=== PATIENT | female | born 1970 | race Hispanic/Latino ===

== ENCOUNTER 2018-06-27 23:14 | Emergency (ER) | payer OTHER ==
[2018-06-27 23:48] LABS: APPEARANCE,URINE Turbid (CLEAR); BILIRUBIN,URINE Small (NEGATIVE); COLOR,URINE Dark Yellow (YELLOW); GLUCOSE, URINE (UA) Negative (NEGATIVE); KETONES,URINE Negative (NEGATIVE); LEUKOCYTE ESTERASE ,URINE Large (NEGATIVE); NITRATE,URINE Positive (NEGATIVE); OCCULT BLOOD,URINE Large (NEGATIVE); PROTEIN,URINE POS 2+ (NEGATIVE)
[2018-06-27] MEDS ORDERED: ONDANSETRON HCL 4 MG/2 ML VIAL ONE (23:50)
[2018-06-27] MEDS ORDERED: SODIUM CHLORIDE 0.9% 1000ML 1,000 ML IV ONE (23:51)
[2018-06-27] MEDS ORDERED: FAMOTIDINE/PF 20 MG/2 ML VIAL IV ONE (23:51)
[2018-06-27 23:54] LABS: EOSINOPHILS % (AUTO) 0.6 % (0.0-8.0); HEMATOCRIT 39.4 % (36-48); LYMPHOCYTES % (AUTO) 32.5 % (21.0-51.0); MEAN CORPUSCULAR HGB CONC 34.5 g/dL (32.0-36.0); MEAN CORPUSCULAR VOLUME 90.1 fL (79-99); MONOCYTES % (AUTO) 7.5 % (3.0-13.0); NEUTROPHILS % (AUTO) 58.4 % (40.0-77.0); PLATELET COUNT (AUTO) 242 K/uL (130-400); RED BLOOD CELL COUNT(AUTO) 4.37 MIL/uL (4.00-5.50); RED CELL DISTRIBUTION WIDTH 12.8 % (11.0-15.5); WHITE BLOOD COUNT (AUTO) 8.9 K/uL (4.8-10.8)
[2018-06-28 00:06] LABS: ALBUMIN 3.3 g/dL (3.5-5.0); BILIRUBIN,TOTAL 0.6 mg/dL (0.2-1.0); CREATININE 0.8 mg/dL (0.5-1.5); TOTAL PROTEIN, SERUM 8.1 g/dL (6.0-8.3)
[2018-06-28 00:15] LABS: POTASSIUM 3.4 mmol/L (3.5-5.1)
[2018-06-28 00:19] LABS: BACTERIA,URINE Many /HPF (None Seen); MUCUS,URINE Few LPF (None Seen); WBC,URINE TNTC /HPF (0-1)
[2018-06-28] MEDS ORDERED: MAG HYDROX/AL HYDROX/SIMETH ES 30 ML SUSP UDCUP ONE (00:47)
[2018-06-28] MEDS ORDERED: LIDOCAINE HCL 2% VISCOUS 15 ML UDCUP ONE (00:47)
[2018-06-28] MEDS ORDERED: CEFTRIAXONE SODIUM 1 GM ONE (01:01)
[2018-06-28] MEDS ORDERED: SODIUM CHLORIDE 0.9% 50 ML IV ONE (01:01)
== END 2018-06-28 02:23 | disposition home or self-care (01) ==
LOC: EDH 23:14
DX: N39.0 Urinary tract infection, site not specified (principal); K80.70 Calculus of gallbladder and bile duct without cholecystitis without obstruction; E11.9 Type 2 diabetes mellitus without complications; Z98.890 Other specified postprocedural states
CPT/HCPCS: 36415; 76705; 80053; 81001; 82150; 83690; 85025; 93005; 96374; 96375; 99285; J0696; J2405; J3490; J7030

== ENCOUNTER 2018-06-29 15:59 | Emergency (ER) | payer OTHER ==
[2018-06-29] MEDS ORDERED: DICYCLOMINE HCL 10 MG/ML 2ML AMP IM ONE (16:50)
[2018-06-29] MEDS ORDERED: ONDANSETRON HCL 4 MG/2 ML VIAL ONE (16:50)
[2018-06-29 16:56] LABS: BASOPHILS % (AUTO) 0.9 % (0.0-5.0); EOSINOPHILS % (AUTO) 0.7 % (0.0-8.0); HEMATOCRIT 38.8 % (36-48); LYMPHOCYTES % (AUTO) 29.4 % (21.0-51.0); MEAN CORPUSCULAR HGB CONC 34.5 g/dL (32.0-36.0); MEAN CORPUSCULAR VOLUME 89.9 fL (79-99); MONOCYTES % (AUTO) 7.2 % (3.0-13.0); NEUTROPHILS % (AUTO) 61.8 % (40.0-77.0); PLATELET COUNT (AUTO) 247 K/uL (130-400); RED BLOOD CELL COUNT(AUTO) 4.31 MIL/uL (4.00-5.50); RED CELL DISTRIBUTION WIDTH 12.7 % (11.0-15.5); WHITE BLOOD COUNT (AUTO) 7.5 K/uL (4.8-10.8)
[2018-06-29 17:05] LABS: CREATININE 0.7 mg/dL (0.5-1.5); POTASSIUM 3.6 mmol/L (3.5-5.1)
[2018-06-29 17:10] LABS: ALBUMIN 3.2 g/dL (3.5-5.0); BILIRUBIN,DIRECT 0.2 mg/dL (0.0-0.3); BILIRUBIN,TOTAL 0.4 mg/dL (0.2-1.0); TOTAL PROTEIN, SERUM 8.3 g/dL (6.0-8.3)
[2018-06-29 17:23] LABS: APPEARANCE,URINE Clear (CLEAR); BILIRUBIN,URINE Negative (NEGATIVE); COLOR,URINE Yellow (YELLOW); GLUCOSE, URINE (UA) Negative (NEGATIVE); KETONES,URINE Trace mg/dL (NEGATIVE); LEUKOCYTE ESTERASE ,URINE Small (NEGATIVE); NITRATE,URINE Negative (NEGATIVE); OCCULT BLOOD,URINE Negative (NEGATIVE); PH,URINE 6.5 (5.0-8.0); PROTEIN,URINE Negative (NEGATIVE)
[2018-06-29 17:33] LABS: RBC,URINE 0-1 /HPF (0-1)
[2018-06-29 17:34] LABS: BACTERIA,URINE Rare /HPF (None Seen); SQUAMOUS EPITHELIAL CELL,UR Few /HPF (0-2); YEAST,URINE BUDDING Few /HPF (None Seen)
== END 2018-06-29 18:14 | disposition home or self-care (01) ==
LOC: EDH 15:59
DX: N39.0 Urinary tract infection, site not specified (principal); K80.70 Calculus of gallbladder and bile duct without cholecystitis without obstruction; E11.9 Type 2 diabetes mellitus without complications; Z87.891 Personal history of nicotine dependence
CPT/HCPCS: 36415; 80048; 80076; 81001; 85025; 96372; 96374; 99284; J0500; J2405

== ENCOUNTER 2018-07-18 08:18 | Emergency (ER) | payer OTHER ==
[2018-07-18] MEDS ORDERED: ONDANSETRON HCL 4 MG/2 ML VIAL ONE (08:53)
[2018-07-18] MEDS ORDERED: HYDROCODONE/ACETAMINOPHEN 10/325 MG TAB ONE (08:54)
[2018-07-18 08:58] LABS: BASOPHILS % (AUTO) 0.3 % (0.0-5.0); HEMATOCRIT 39.7 % (36-48); LYMPHOCYTES % (AUTO) 11.5 % (21.0-51.0); MEAN CORPUSCULAR HEMOGLOBIN 29.8 pg (27.0-33.0); MEAN CORPUSCULAR HGB CONC 33.8 g/dL (32.0-36.0); MEAN CORPUSCULAR VOLUME 88.1 fL (79-99); MONOCYTES % (AUTO) 7.6 % (3.0-13.0); NEUTROPHILS % (AUTO) 80.6 % (40.0-77.0); PLATELET COUNT (AUTO) 204 K/uL (130-400); RED BLOOD CELL COUNT(AUTO) 4.51 MIL/uL (4.00-5.50); RED CELL DISTRIBUTION WIDTH 12.7 % (11.0-15.5); WHITE BLOOD COUNT (AUTO) 13.8 K/uL (4.8-10.8)
[2018-07-18 09:01] LABS: APPEARANCE,URINE Cloudy (CLEAR); BILIRUBIN,URINE Negative (NEGATIVE); COLOR,URINE Yellow (YELLOW); GLUCOSE, URINE (UA) >=1000 mg/dL (NEGATIVE); KETONES,URINE 15 mg/dL (NEGATIVE); LEUKOCYTE ESTERASE ,URINE Moderate (NEGATIVE); NITRATE,URINE Positive (NEGATIVE); OCCULT BLOOD,URINE Small (NEGATIVE); PH,URINE 6.5 (5.0-8.0); PROTEIN,URINE Trace (NEGATIVE)
[2018-07-18 09:04] LABS: CREATININE 0.9 mg/dL (0.5-1.5); POTASSIUM 3.5 mmol/L (3.5-5.1)
[2018-07-18 09:08] LABS: ALBUMIN 2.9 g/dL (3.5-5.0); BILIRUBIN,TOTAL 0.9 mg/dL (0.2-1.0); TOTAL PROTEIN, SERUM 8.7 g/dL (6.0-8.3)
[2018-07-18 09:11] LABS: BACTERIA,URINE Many /HPF (None Seen); WBC,URINE >100 /HPF (0-1)
[2018-07-18] MEDS ORDERED: LEVOFLOXACIN 500 MG/D5W 100 ML 100 ML ONE (09:12)
[2018-07-18] MEDS ORDERED: SODIUM CHLORIDE 0.9% 1000ML 1,000 ML IV ONE (10:15)
[2018-07-18] MEDS ORDERED: CEFTRIAXONE SODIUM 1 GM ONE (10:16)
== END 2018-07-18 11:10 | disposition home or self-care (01) ==
LOC: EDH 08:18
DX: N12 Tubulo-interstitial nephritis, not specified as acute or chronic (principal); K80.50 Calculus of bile duct without cholangitis or cholecystitis without obstruction; E11.9 Type 2 diabetes mellitus without complications
CPT/HCPCS: 36415; 76705; 80053; 81001; 83605; 83690; 85025; 87040 ×2; 87077 ×2; 87088; 87186 ×2; 87804 ×2; 96365; 96375; 99285; J0696; J1956; J2405; J7030

== ENCOUNTER 2020-03-28 20:42 | Emergency (ER) | payer OTHER ==
[2020-03-28 21:34] LABS: BASOPHILS % (AUTO) 0.4 % (0.0-5.0); EOSINOPHILS % (AUTO) 0.6 % (0.0-8.0); HEMATOCRIT 43.2 % (36-48); LYMPHOCYTES % (AUTO) 34.5 % (21.0-51.0); MEAN CORPUSCULAR HEMOGLOBIN 29.8 pg (27.0-33.0); MEAN CORPUSCULAR HGB CONC 33.8 g/dL (32.0-36.0); MEAN CORPUSCULAR VOLUME 88.2 fL (79-99); MONOCYTES % (AUTO) 8.9 % (3.0-13.0); NEUTROPHILS % (AUTO) 55.2 % (40.0-77.0); PLATELET COUNT (AUTO) 180 K/uL (130-400); WHITE BLOOD COUNT (AUTO) 5.3 K/uL (4.8-10.8)
[2020-03-28 21:37] LABS: APPEARANCE,URINE Clear (CLEAR); BILIRUBIN,URINE Negative (NEGATIVE); COLOR,URINE Yellow (YELLOW); GLUCOSE, URINE (UA) >=1000 mg/dL (NEGATIVE); KETONES,URINE Negative (NEGATIVE); LEUKOCYTE ESTERASE ,URINE Negative (NEGATIVE); NITRATE,URINE Negative (NEGATIVE); OCCULT BLOOD,URINE Negative (NEGATIVE); PROTEIN,URINE Negative (NEGATIVE)
[2020-03-28 21:46] LABS: RBC,URINE 0-1 /HPF (0-1); WBC,URINE 0-1 /HPF (0-1)
[2020-03-28 21:47] LABS: BACTERIA,URINE Rare /HPF (None Seen); POTASSIUM 4.7 mmol/L (3.5-5.1); SQUAMOUS EPITHELIAL CELL,UR Rare /HPF (0-2)
[2020-03-28] MEDS ORDERED: IBUPROFEN 400 MG TABLET ONE (21:47)
[2020-03-28] MEDS ORDERED: ONDANSETRON ODT 4 MG TAB ONE (21:47)
[2020-03-28 21:51] LABS: ALBUMIN 3.3 g/dL (3.5-5.0); BILIRUBIN,TOTAL 0.2 mg/dL (0.2-1.0); TOTAL PROTEIN, SERUM 8.5 g/dL (6.0-8.3)
[2020-03-28] MEDS ORDERED: INSULIN HUMULIN R 100 UNIT/ML 3ML ONE (22:30)
[2020-03-28] MEDS ORDERED: MECLIZINE HCL 25 MG TABLET ONE (22:32)
== END 2020-03-28 23:34 | disposition home or self-care (01) ==
LOC: EDH 20:42
DX: J30.9 Allergic rhinitis, unspecified (principal); M54.5 Low back pain; E11.65 Type 2 diabetes mellitus with hyperglycemia; R10.9 Unspecified abdominal pain; R11.0 Nausea
CPT/HCPCS: 36415; 80053; 81001; 82948; 83690; 85025; 87880; 96361; 96374; 99284; J1815

== ENCOUNTER 2022-12-25 11:12 | Emergency (ER) | payer BC, OTHER ==
[~2022-12-25] VITALS: Ht 157.5 cm; Wt 77.1 kg
[~2022-12-25 11:12] MED LIST: ASCO500T19 PO; FERR-72 PO; LEVO750T68 PO
[2022-12-25 11:42] LABS: BASOPHILS % (AUTO) 0.3 % (0.0-5.0); EOSINOPHILS % (AUTO) 0.9 % (0.0-8.0); LYMPHOCYTES % (AUTO) 30.3 % (21.0-51.0); MEAN CORPUSCULAR HEMOGLOBIN 29.9 pg (27.0-33.0); MEAN CORPUSCULAR HGB CONC 34.8 g/dL (32.0-36.0); MEAN CORPUSCULAR VOLUME 85.9 fL (79-99); MONOCYTES % (AUTO) 7.2 % (3.0-13.0); NEUTROPHILS % (AUTO) 60.8 % (40.0-77.0); PLATELET COUNT (AUTO) 177 K/uL (130-400); RED BLOOD CELL COUNT(AUTO) 4.89 MIL/uL (4.00-5.50); RED CELL DISTRIBUTION WIDTH 13.3 % (11.0-15.5); WHITE BLOOD COUNT (AUTO) 7.7 K/uL (4.8-10.8)
[2022-12-25 11:53] LABS: POTASSIUM 4.2 mmol/L (3.5-5.1)
[2022-12-25 11:55] LABS: ALBUMIN 3.4 g/dL (3.5-5.0); TOTAL PROTEIN, SERUM 8.1 g/dL (6.0-8.3)
[2022-12-25 11:56] LABS: APPEARANCE,URINE TURBID (CLEAR); BILIRUBIN,URINE NEGATIVE (NEGATIVE); COLOR,URINE RED (YELLOW); GLUCOSE, URINE (UA) >=1000 mg/dL (NEGATIVE); KETONES,URINE 5 mg/dL (NEGATIVE); LEUKOCYTE ESTERASE ,URINE NEGATIVE Leu/uL (NEGATIVE); NITRATE,URINE NEGATIVE (NEGATIVE); OCCULT BLOOD,URINE LARGE (NEGATIVE); PROTEIN,URINE 100 mg/dL (NEGATIVE); UROBILINOGEN,URINE 0.2 mg/dL (0.2-1.0)
[2022-12-25 12:16] LABS: RBC,URINE TNTC /HPF (0-1); WBC,URINE TNTC /HPF (0-1)
[2022-12-25] MEDS ORDERED: CEFTRIAXONE 1G VIAL IVP ONE (14:00)
[2022-12-25 16:16] VITALS: BP 128/68
[2022-12-25] MEDS ORDERED: CEFU500T67 PO (16:34)
== END 2022-12-25 16:59 | disposition home or self-care (01) ==
LOC: EDH 11:12
DX: N30.91 Cystitis, unspecified with hematuria (principal); E11.9 Type 2 diabetes mellitus without complications; Z79.899 Other long term (current) drug therapy; Z98.890 Other specified postprocedural states
CPT/HCPCS: 99285; 74176; 96374; 76770; 80053; 85025; 87088; 81001; 36415; J0696

== ENCOUNTER 2023-08-20 09:57 | Emergency (ER) | payer BC, OTHER ==
[~2023-08-20] VITALS: Ht 157.5 cm; Wt 77.1 kg
[~2023-08-20 09:57] MED LIST changes: +CEFU500T67 PO
[2023-08-20 10:32] VITALS: BP 134/80; PULSE 81; RESP 17; O2SAT 99
[2023-08-20] MEDS ORDERED: KETOROLAC 60 MG VIAL (30MG/ML) IM ONE (11:30)
[2023-08-20] MEDS ORDERED: CYCLOBENZAPRINE HCL 10 MG TABLET PO ONE (11:30)
[2023-08-20] MEDS ORDERED: IBUP-2077 PO (12:24)
[2023-08-20] MEDS ORDERED: CYCL10TA16 PO (12:24)
== END 2023-08-20 12:35 | disposition home or self-care (01) ==
LOC: EDH 09:57
DX: S80.01XA Contusion of right knee, initial encounter (principal); E11.9 Type 2 diabetes mellitus without complications; Z79.899 Other long term (current) drug therapy; Z98.890 Other specified postprocedural states; Z90.49 Acquired absence of other specified parts of digestive tract; W01.0XXA Fall on same level from slipping, tripping and stumbling without subsequent striking against object, initial encounter; Y93.89 Activity, other specified; Y92.89 Other specified places as the place of occurrence of the external cause; Y99.8 Other external cause status
CPT/HCPCS: 99284; 71045; 73562; 71100; 96372; J1885

== ENCOUNTER 2024-10-10 17:00 | Emergency (ER) | payer OTHER ==
[~2024-10-10] VITALS: Ht 157.5 cm; Wt 63.0 kg
[~2024-10-10 17:00] MED LIST changes: +CYCL10TA16 PO; +IBUP-2077 PO
--- NOTE | 2024-10-10 17:08 | ERN ---
ED Note History of Present Illness Stated Complaint: ABDOMINAL PAIN Chief Complaint: Abdominal Pain Time Seen by MD: 17:02 Dictation: PATIENT IS A 54-YEAR-OLD FEMALE COMING IN TODAY WITH A INTERMITTENT EPIGASTRIC PAIN WITH THE OCCASIONAL NAUSEA VOMITING FOR THREE MONTHS. NO CHEST PAIN NO BACK PAIN NO SOB, NO FEVER NO CHILLS. SHE STATES SHE IS ON OZEMPIC IN HIS ONLY BEEN BACK TO HER DOCTOR THIS MORNING AFTER THREE MONTHS, SHE TOLD HER TO GO TO THE EMERGENCY ROOM. Allergies: Coded Allergies: No Known Drug Allergies (Unverified Allergy, Unknown, 04/13/22) Home Meds Active Scripts Cyclobenzaprine HCl (Flexeril) 10 Mg Tab, 10 MG PO TID for muscle sstiffness, #14 TAB 0 Refills Prov:WILLIAM GALLEGO NP 08/20/23 Ibuprofen (Ibuprofen 800 mg Tab) 800 Mg Tab, 800 MG PO Q8H PRN for fever or pain, #30 TAB 0 Refills Prov:WILLIAM GALLEGO NP 08/20/23 Cefuroxime Axetil (Cefuroxime) 500 Mg Tablet, 500 MG PO BID for 7 Days, #14 TAB Prov:PRICE TORRES MD 12/25/22 Ascorbic Acid/Ascorbate Sodium (Vitamin C 500 mg Tablet Chew) 500 Mg Tab.chew, 500 MG PO DAILY for 30 Days, #30 TAB.CHEW Prov:MELODY YAÑEZ 04/20/22 Ferrous Sulfate (Ferrous Sulfate) 325 Mg Tablet, 325 MG PO DAILY for 30 Days, #30 TAB Prov:MELODY YAÑEZ 04/20/22 Levofloxacin (Levaquin 750Mg Tabs) 750 Mg Tablet, 750 MG PO DAILYBKFST for 14 Days, #14 TAB Prov:MELODY YAÑEZ 04/20/22 Past Medical History Past Medical History: No Pertinent History, Diabetes-Type II Surgical History: Cholecystectomy, Other, Surgical History Other: OVARIAN CYST, KIDNEY STONES. Social History: Negative, Lives with family History: Not Applicable RN Note Reviewed/Agreed w/PFSH: Yes Review of System Dictation CONSTITUTIONAL: NEGATIVE EXCEPT FOR HPI HEAD/FACE: NEGATIVE EXCEPT FOR HPI EENT: NEGATIVE EXCEPT FOR HPI RESPIRATORY: NEGATIVE EXCEPT FOR HPI GASTROINTESTINAL/ABDOMINAL: NEGATIVE EXCEPT FOR HPI EPIGASTRIC PAIN WITH NAUSEA VOMITING X3 MONTHS GENITOURINARY: NEGATIVE EXCEPT FOR HPI MUSCULOSKELETAL: NEGATIVE EXCEPT FOR HPI INTEGUMENTARY: NEGATIVE EXCEPT FOR HPI NEUROLOGICAL/PSYCH: NEGATIVE EXCEPT FOR HPI HEMATOLOGIC/LYMPHATIC: NEGATIVE EXCEPT FOR HPI ALL SYSTEMS NEGATIVE, EXCEPT NOTED ABOVE. 13 POINT REVIEW OF SYSTEMS ASSESSED AND ALL NEGATIVE EXCEPT FOR ABOVE. Initial Vital Sign VS Vital Signs Date Time Temp Pulse Resp B/P (MAP) Pulse Ox O2 Delivery O2 Flow Rate FiO2 10/10/24 17:01 98.6 103 16 134/78 98 Room Air 0 10/10/24 17:50 21 Physical Exam Dictation VITAL SIGNS REVIEWED GENERAL APPEARANCE: ALERT, ORIENTED X 3, MILD ACUTE DISTRESS, WELL DEVELOPED, NOURISHED. HEAD AND FACE: NON-TRAUMATIC. EYES: PERRL, PINK CONJUNCTIVAS, EYELID NO TRAUMA, ANTERIOR CHAMBER WITH ARCUS SENILIS. EARS: PINNAS INTACT AND NO SIGNS OF TRAUMA OR ERYTHEMA EAR CANALS CLEAR AND NO DISCHARGE TM NO ERYTHEMA NOSE: NO DISCHARGE, NO BLEEDING. OROPHARYNX: MOUTH NORMAL, TONGUE PINK, PHARYNX CLEAR,NO ERYTHEMA, TONSILS NO EXUDATES, NO ABSCESSES NOTED, MUCOUS MEMBRANE MOIST NECK: SUPPLE, NON-TENDER, NO THYROMEGALY, NO MASSES, NO JVD, NO BRUITS BREAST:DEFERRED CHEST:NO TENDERNESS, NO CREPITUS, NO PARADOXICAL MOVEMENT, NO RETRACTIONS LUNGS:CLEAR, WELL-VENTILATED, SYMMETRIC, NO RALES, NO WHEEZING, NO RHONCHI, NO STRIDOR, GOOD BREATH SOUNDS BILATERALLY HEART: REGULAR RATE, REGULAR RHYTHM, NO MURMUR, NO GALLOPS VASCULAR: NO PERIPHERAL EDEMA, MILD EPIGASTRIC TENDERNESS WITH PALPATION, NO REBOUND, NO MASSES NO HEPATOMEGALY, NO SPLENOMEGALY, NO PHILLIPS'S SIGN, NO HERNIAS. RECTAL: DEFERRED GENITAL: DEFERRED NEUROLOGICAL: NORMAL SPEECH, MOTOR FUNCTION INTACT, SENSORY FUNCTION INTACT MUSCULOSKELETAL: NECK NONTENDER, FULL RANGE OF MOTION, BACK NONTENDER, FULL RANGE OF MOTION, EXTREMITIES: NONTENDER, FULL RANGE OF MOTION SKIN: COLOR PINK, DRY, NO TURGOR, NO RASH, NO LACERATIONS, NO ABRASIONS, NO CONTUSIONS. LYMPHATIC: DEFERRED Results (Laboratory/Radiology) Laboratory/Radiology Laboratory Tests Test 10/10/24 17:11 10/10/24 17:22 10/10/24 17:57 10/10/24 20:00 Urine Color LIGHT-YELLOW (YELLOW) Urine Appearance CLOUDY (CLEAR) H Urine pH 6.5 (5.0-8.0) Urine Specific [place] 1.014 (1.001-1.031) Urine Protein 10 mg/dL (NEGATIVE) H Urine Glucose (UA) >=1000 mg/dL (NEGATIVE) H Urine Ketones NEGATIVE mg/dL (NEGATIVE) Urine Occult Blood SMALL (NEGATIVE) H Urine Nitrate NEGATIVE (NEGATIVE) Urine Bilirubin NEGATIVE mg/dL (NEGATIVE) Urine Urobilinogen 0.2 mg/dL (0.2-1.0) Urine Leukocyte Esterase 500 [place]/uL (NEGATIVE) H Urine RBC 6-10 /HPF (0-1) H Urine WBC >100 /HPF (0-1) H Urine WBC Clumps (Auto) FEW /HPF (0-1) Urine Squamous Epithelial Cells RARE /HPF (0-2) Urine Bacteria RARE /HPF (None Seen) Urine Yeast RARE /HPF (None Seen) White Blood Count 6.4 K/uL (4.8-10.8) Red Blood Count 3.66 MIL/uL (4.00-5.50) L Hemoglobin 11.0 g/dL (12.0-16.0) L Hematocrit 33.4 % (36-48) L Mean Corpuscular Volume 91.3 fL (79-99) Mean Corpuscular Hemoglobin 30.1 pg (27.0-33.0) Mean Corpuscular Hemoglobin Concent 32.9 g/dL (32.0-36.0) Red Cell Distribution Width 13.7 % (11.0-15.5) Platelet Count 190 K/uL (130-400) Mean Platelet Volume 10.3 fL (7.5-10.5) Immature Granulocyte % (Auto) 0.3 % (0-1) Neutrophils (%) (Auto) 56.9 % (40.0-77.0) Lymphocytes (%) (Auto) 34.4 % (21.0-51.0) Monocytes (%) (Auto) 6.7 % (3.0-13.0) Eosinophils (%) (Auto) 1.4 % (0.0-8.0) Basophils (%) (Auto) 0.3 % (0.0-5.0) Neutrophils # (Auto) 3.7 K/uL (1.8-7.7) Lymphocytes # (Auto) 2.2 K/uL (1.0-4.8) Monocytes # (Auto) 0.4 K/uL (0.1-1.0) Eosinophils # (Auto) 0.09 K/uL (0.00-0.70) Basophils # (Auto) 0.02 K/uL (0.00-0.20) Absolute Immature Granulocyte (auto 0.02 K/uL (0-1) Nucleated Red Blood Cells 0.0 % (0.0-0.19) Sodium Level 132 mmol/L (136-145) L Potassium Level 3.9 mmol/L (3.5-5.1) Chloride Level 96 mmol/L (101-111) L Carbon Dioxide Level 29 mmol/L (21-32) Blood Urea Nitrogen 11 mg/dL (7-18) Creatinine 1.3 mg/dL (0.5-1.0) H Glomerular Filtration Rate Calc 49 mL/min (>90) Random Glucose 493 mg/dL (70-105) *H Total Calcium 8.6 mg/dL (8.5-10.1) Lipase 47 U/L (16-77) Whole Blood Ketones Quantitative 0.1 mmol/L (0.0-0.6) Whole Blood Glucose 280 MG/DL (70-110) H Labs Reviewed?: Yes ED Course ED Course Orders Procedure Category Date Status Time Cbc With Differential LAB 10/10/24 Complete 17:05 Urinalysis Profile LAB 10/10/24 Complete 17:05 Lipase LAB 10/10/24 Complete 17:05 Basic Metabolic Panel LAB 10/10/24 Complete 17:05 Culture Urine EVELYNE 10/10/24 In Process 17:30 Ketone Blood LAB 10/10/24 Complete Quantitative 17:52 0.9%Nacl 1000ml (Ns PHA 10/10/24 In Process 1000ml) 18:00 Insulin Regular, PHA 10/10/24 Complete Human 3ml (Humulin R 17:52 Famotidine 20mg Vial PHA 10/10/24 Complete (Pepcid 20mg Vial) 18:30 Bedside Glucose CPOE 10/10/24 Transmitted Fingerstick 19:37 Current Medications Medications (Trade) Dose Ordered Sig/Tj Route PRN Reason Start Time Stop Time Status Last Admin Dose Admin Famotidine (Pepcid 20mg Vial) 20 mg ONCE ONCE IV 10/10/24 18:30 10/10/24 18:31 DC 1/16/25 18:18 Insulin Human Regular (humuLIN R 100 UNIT/ML 3ML) 15 unit ONCE STAT IV 10/10/24 17:52 10/10/24 17:56 DC 10/10/24 18:19 Sodium Chloride 1,890 ml @ 630 mls/hr ONCE ONCE IV 10/10/24 18:00 10/10/24 20:59 10/10/24 18:18 Vital Signs Date Time Temp Pulse Resp B/P (MAP) Pulse Ox O2 Delivery O2 Flow Rate FiO2 10/10/24 17:50 98.6 100 16 134/78 98 Room Air* 0 21 10/10/24 17:01 98.6 103 16 134/78 98 Room Air 0 2011 REPEAT BLOOD SUGAR 280 AFTER TREATMENT WITH FLUIDS AND REGULAR INSULIN. PATIENT DISCHARGED HOME WITH CARAFATE AND OMEPRAZOLE TOLD TO SEE HER PRIMARY CARE DOCTOR FOR FOLLOW UP WHO PRESCRIBED THE OZEMPIC Medical Decision Making MDM MDM: DIFFERENTIAL DIAGNOSIS: GASTRITIS/GASTROENTERITIS/GERD/DKA/ELECTROLYTE IMBALANCE/DEHYDRATION RATIONALE: TESTS CONSIDERED AND ORDERED SECONDARY TO SHARED DECISION MAKING INCLUDE: LABS/ PREVIOUS OUTSIDE RECORDS REVIEWED: OLD ER VISITS. REVIEWED RISK OF COMPLICATION AND/OR MORBIDITY OR MORTALITY OF PATIENT MANAGEMENT: NONE MEDICATIONS-PER MEDICATION RECONCILIATION NEED FOR HOSPITALIZATION: PATIENT DOES NOT MEET CRITERIA FOR HOSPITALIZATION. NO NEED FOR EMERGENCY MAJOR/MINOR SURGERY: NO THERE ARE NO SOCIAL CONCERNS WITH THIS PATIENT. PRESCRIPTION DRUG MANAGEMENT CARAFATE/OMEPRAZOLE PRESCRIPTIONS WILL INCLUDE SYMPTOMATIC CARE PATIENT'S PRIOR EXTERNAL MEDICAL RECORDS FROM OTHER ER VISITS WERE REVIEWED BY ME INDICATED. PRIOR TESTING AND RESULTS FROM PREVIOUS VISITS WERE REVIEWED. PRIOR TESTS WERE TAKEN INTO ACCOUNT WITH MEDICAL DECISION MAKING AND RESOURCE UTILIZATION, INDEPENDENT HISTORIAN/HISTORIANS WERE USED TO OBTAIN COMPLETE MEDICAL HISTORY. I INDEPENDENTLY INTERPRETED THE TEST THAT WERE PERFORMED, RESULTS WERE REVIEWED BY ME AND CONSIDERED FINDINGS ON RADIOLOGY IF ORDERED. MEDICAL MANAGEMENT AND EXAMINATION INTERPRETATION DISCUSSIONS WERE HAD BY ME WITH OTHER QUALIFIED HEALTHCARE PROFESSIONALS INDICATED FOR THE PATIENT'S CARE. DX & DISP Disposition: Discharge Departure Impression: Primary Impression: Acute gastritis Additional Impressions: Uncontrolled diabetes mellitus, Medication side effects, Acute UTI Condition: Stable Scripts Omeprazole (Omeprazole) 40 Mg Capsule. 40 MG PO DAILY, #15 CAP Prov: WILLIAM GALLEGO PSYCHIATRIC REGISTERED NURSE 10/10/24 Sucralfate (Carafate) 1 Gram Tablet 1 GM PO ACHS for 10 Days, #40 TAB Prov: WILLIAM GALLEGO PSYCHIATRIC REGISTERED NURSE 10/10/24 Amoxicillin/Potassium Clav (Amox Tr-K Clv 875-125 mg Tab) 875 Mg-125 Mg Tablet 1 EACH PO BID for 7 Days, #14 TAB 0 Refills Prov: WILLIAM GALLEGO PSYCHIATRIC REGISTERED NURSE 10/10/24 Additional Instructions: FOLLOW-UP WITH PRIMARY CARE PROVIDER IN 1 TO 2 DAYS. TAKE MEDICATIONS DIRECTED HERE IN THE EMERGENCY ROOM. OKAY TO CONTINUE HOME MEDICATIONS UNLESS OTHERWISE DISCUSSED DURING YOUR VISIT IN THE EMERGENCY ROOM TODAY. RETURN TO YOUR NEAREST EMERGENCY ROOM IF SYMPTOMS WORSEN OR IF THERE IS NO IMPROVEMENT. CALL 911 IF YOU NEED IMMEDIATE ASSISTANCE. TAKE TYLENOL OR MOTRIN [id number] NEEDED AND IF NO CONTRAINDICATIONS ARE PRESENT. INCREASE ORAL HYDRATION. A WOUND CULTURE OR URINE CULTURE WAS ORDERED HERE IN THE EMERGENCY ROOM DEPARTMENT PLEASE FOLLOW-UP WITH PRIMARY CARE PROVIDER AND ADVISE THEM TO GET REPEAT PORTS FROM OUR FACILITY. IF YOU HAD ANY FARIDA WRAP/SPLINTS THAT WERE APPLIED HERE, PLEASE DO NOT REMOVE THEM UNTIL YOU SEE YOUR PRIMARY CARE OR SPECIALTY. TAKE CARAFATE AND OMEPRAZOLE DIRECTED. INCREASE YOUR WATER INTAKE AND TAKE ANTIBIOTICS DIRECTED FOR YOUR URINARY TRACT INFECTION. FOLLOW UP WITH THE PRIMARY CARE DOCTOR WHO PRESCRIBED YOUR OZEMPIC IN THE NEXT 1-2 DAYS Referrals: BREANNE KING DO (PCP) Time of Disposition: 20:14 I have reviewed the case, and I agree with, Diagnosis and Plan WILLIAM GALLEGO NP Oct 10, 2024 17:08
[2024-10-10 17:29] LABS: BASOPHILS # (AUTO) 0.02 K/uL (0.00-0.20); BASOPHILS % (AUTO) 0.3 % (0.0-5.0); EOSINOPHILS # (AUTO) 0.09 K/uL (0.00-0.70); EOSINOPHILS % (AUTO) 1.4 % (0.0-8.0); HEMATOCRIT 33.4 % (36-48); IMMATURE GRANULOCYTE ABSOLUTE 0.02 K/uL (0-1); LYMPHOCYTES # (AUTO) 2.2 K/uL (1.0-4.8); LYMPHOCYTES % (AUTO) 34.4 % (21.0-51.0); MEAN CORPUSCULAR HEMOGLOBIN 30.1 pg (27.0-33.0); MEAN CORPUSCULAR HGB CONC 32.9 g/dL (32.0-36.0); MEAN CORPUSCULAR VOLUME 91.3 fL (79-99); MONOCYTES # (AUTO) 0.4 K/uL (0.1-1.0); MONOCYTES % (AUTO) 6.7 % (3.0-13.0); NEUTROPHILS # (AUTO) 3.7 K/uL (1.8-7.7); NEUTROPHILS % (AUTO) 56.9 % (40.0-77.0); PLATELET COUNT (AUTO) 190 K/uL (130-400); RED BLOOD CELL COUNT(AUTO) 3.66 MIL/uL (4.00-5.50); RED CELL DISTRIBUTION WIDTH 13.7 % (11.0-15.5); WHITE BLOOD COUNT (AUTO) 6.4 K/uL (4.8-10.8)
[2024-10-10 17:30] LABS: ADD UA MICROSCOPIC YES; APPEARANCE,URINE CLOUDY (CLEAR); BILIRUBIN,URINE NEGATIVE (NEGATIVE); COLOR,URINE LIGHT-YELLOW (YELLOW); GLUCOSE, URINE (UA) >=1000 mg/dL (NEGATIVE); KETONES,URINE NEGATIVE (NEGATIVE); LEUKOCYTE ESTERASE ,URINE 500 Leu/uL (NEGATIVE); NITRATE,URINE NEGATIVE (NEGATIVE); OCCULT BLOOD,URINE SMALL (NEGATIVE); PH,URINE 6.5 (5.0-8.0); PROTEIN,URINE 10 mg/dL (NEGATIVE); UROBILINOGEN,URINE 0.2 mg/dL (0.2-1.0)
[2024-10-10 17:34] LABS: BACTERIA,URINE RARE /HPF (None Seen); MUCUS,URINE RARE LPF (None Seen); SQUAMOUS EPITHELIAL CELL,UR RARE /HPF (0-2); WBC CLUMP FEW /HPF (0-1); WBC,URINE >100 /HPF (0-1); YEAST,URINE BUDDING RARE /HPF (None Seen)
[2024-10-10 17:40] LABS: CREATININE 1.3 mg/dL (0.5-1.0); POTASSIUM 3.9 mmol/L (3.5-5.1)
[2024-10-10] MEDS: FAMOTIDINE 20MG VIAL IV ONE (18:18)
[2024-10-10] MEDS: [UNRECOGNIZED DRUG - OTHER] IV ONE (18:18)
[2024-10-10] MEDS: INSULIN humuLIN R 100 UNIT/ML 3ML IV STA (18:19)
[2024-10-10] MEDS ORDERED: OMEP40CA21 PO (20:16)
[2024-10-10] MEDS ORDERED: AMOX1TAB16 PO (20:16)
[2024-10-10] MEDS ORDERED: SUCR1TAB28 PO (20:16)
[2024-10-10 20:18] VITALS: BP 138/75; PULSE 85; RESP 16; TEMP 98.1; O2SAT 98
== END 2024-10-10 20:26 | disposition home or self-care (01) ==
LOC: EDH 17:00
DX: K29.00 Acute gastritis without bleeding (principal); N39.0 Urinary tract infection, site not specified; T50.905A Adverse effect of unspecified drugs, medicaments and biological substances, initial encounter; E11.65 Type 2 diabetes mellitus with hyperglycemia; Z90.49 Acquired absence of other specified parts of digestive tract; Z79.899 Other long term (current) drug therapy; Z98.890 Other specified postprocedural states; Y92.89 Other specified places as the place of occurrence of the external cause
CPT/HCPCS: 99284; 96374; 96361; 96375; 80048; 83690; 85025; 87086; 82948; 82010; 81001; 36415; J1815; J3490; J7030

== ENCOUNTER 2025-04-29 19:37 | Emergency (ER) | payer OTHER ==
[~2025-04-29] VITALS: Ht 157.5 cm; Wt 61.7 kg
[~2025-04-29 19:37] MED LIST changes: +AMOX1TAB16 PO; +OMEP40CA21 PO; +SUCR1TAB28 PO
[2025-04-29 20:00] LABS: RAPID GROUP A STREP negative (NEGATIVE)
[2025-04-29 20:10] LABS: INFLUENZA TYPE A Negative For Type A (NEGATIVE)
[2025-04-29 20:14] LABS: INFLUENZA TYPE B Positive For Type B (NEGATIVE)
[2025-04-29 20:44] LABS: SARS-CoV-2, RNA, NAAT NEGATIVE SARS CoV-2 (NEGATIVE)
[2025-04-29] MEDS: 0.9%NACL 1000ML 1,000 ML IV ONE ×2 (21:20→22:50)
[2025-04-29 21:21] LABS: IMMATURE GRANULOCYTE ABSOLUTE 0.09 K/uL (0-1); NUCLEATED RED BLOOD CELLS 0.0 % (0.0-0.19); PLATELET COUNT (AUTO) 140 K/uL (130-400); RED BLOOD CELL COUNT(AUTO) 3.77 MIL/uL (4.00-5.50); RED CELL DISTRIBUTION WIDTH 15.7 % (11.0-15.5); WHITE BLOOD COUNT (AUTO) 16.5 K/uL (4.8-10.8)
[2025-04-29 21:26] LABS: CREATININE 1.5 mg/dL (0.5-1.0); GLOMERULAR FILTR. RATE CALC 41.0 mL/min (>90); GLUCOSE,RANDOM 358.0 mg/dL (70-105); SODIUM SERUM 129.0 mmol/L (136-145); UREA NITROGEN, BLOOD 19.0 mg/dL (7-18)
--- NOTE | 2025-04-29 21:29 | EKG ---
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
--- NOTE | 2025-04-29 22:04 | HMCIMG ---
EXAM: CR Chest, 2 views. CLINICAL HISTORY: Shortness of breath. COMPARISON: Chest radiograph dated 08/20/2023. FINDINGS: Mild subsegmental atelectasis in the left lung base. The lungs show no infiltrates or other acute findings. No pleural effusion or pneumothorax. The cardiomediastinal silhouette is within normal limits. No acute osseous abnormality. IMPRESSION: No acute cardiopulmonary process is evident. Mild subsegmental atelectasis in the left lung base with mild interval worsening. /[place]
--- NOTE | 2025-04-29 23:58 | ERN ---
General Chief Complaint: Cough Stated Complaint: C/O COUGH, SOB, HEADACHE, CHILLS, N X V, BODYACHES Time Seen by MD: 19:41 Time Seen by Midlevel: 19:41 Source: patient History of Present Illness Initial Comments Patient is a 54-year-old female presenting to the emergency department for evaluation of increased generalized body weakness, headache, and chills. The patient has multiple nonspecific complaints but reports feeling dehydrated. She does report having a history of type 2 diabetes and is not compliant with the medication. Allergies: Coded Allergies: No Known Drug Allergies (Unverified Allergy, Unknown, 04/13/22) Home Meds Active Scripts Omeprazole (Omeprazole) 40 Mg Capsule.dr, 40 MG PO DAILY, #15 CAP Prov:WILLIAM GALLEGO NP 10/10/24 Sucralfate (Carafate) 1 Gram Tablet, 1 GM PO ACHS for 10 Days, #40 TAB Prov:WILLIAM GALLEGO NP 10/10/24 Amoxicillin/Potassium Clav (Amox Tr-K Clv 875-125 mg Tab) 875 Mg-125 Mg Tablet, 1 EACH PO BID for 7 Days, #14 TAB 0 Refills Prov:WILLIAM GALLEGO NP 10/10/24 Cyclobenzaprine HCl (Flexeril) 10 Mg Tab, 10 MG PO TID for muscle sstiffness, #14 TAB 0 Refills Prov:WILLIAM GALLEGO NP 08/20/23 Ibuprofen (Ibuprofen 800 mg Tab) 800 Mg Tab, 800 MG PO Q8H PRN for fever or pain, #30 TAB 0 Refills Prov:WILLIAM GALLEGO NP 08/20/23 Cefuroxime Axetil (Cefuroxime) 500 Mg Tablet, 500 MG PO BID for 7 Days, #14 TAB Prov:PRICE TORRES MD 12/25/22 Ascorbic Acid/Ascorbate Sodium (Vitamin C 500 mg Tablet Chew) 500 Mg Tab.chew, 500 MG PO DAILY for 30 Days, #30 TAB.CHEW Prov:MELODY YAÑEZ NP 04/20/22 Ferrous Sulfate (Ferrous Sulfate) 325 Mg Tablet, 325 MG PO DAILY for 30 Days, #30 TAB Prov:MELODY YAÑEZ NP 04/20/22 Levofloxacin (Levaquin 750Mg Tabs) 750 Mg Tablet, 750 MG PO DAILYBKFST for 14 Days, #14 TAB Prov:MELODY YAÑEZ PLUMBING INSTRUCTOR 04/20/22 Past Medical History Past Medical History: Diabetes-Type II Past Surgical History: Cholecystectomy, Surgical History Other: OVARIAN CYST, KIDNEY STONES. Social History Social History: Negative, Lives with family Female( History) History: Not Applicable ROS Dictation CONSTITUTIONAL: Negative except for HPI HEAD/FACE: Negative except for HPI EENT: Negative except for HPI RESPIRATORY: Negative except for HPI GASTROINTESTINAL/ABDOMINAL: Negative except for HPI GENITOURINARY: Negative except for HPI MUSCULOSKELETAL: Negative except for HPI INTEGUMENTARY: Negative except for HPI NEUROLOGICAL/PSYCH: Negative except for HPI HEMATOLOGIC/LYMPHATIC: Negative except for HPI All Systems Negative, Except as noted above. 13 point review of systems assessed and all negative except for above. Physical Exam Physical Exam Dictation Vital Signs reviewed General Appearance: Alert, oriented x 3, no acute distress, well developed, nourished. Head and Face: non-traumatic. Eyes: PERRL, pink conjunctivas, eyelid no trauma, anterior chamber with arcus senilis. Ears: Pinnas intact and no signs of trauma or erythema ear canals clear and no discharge TM no erythema Nose: No discharge, no bleeding. Oropharynx: Mouth normal, tongue pink, pharynx clear,no erythema, tonsils no exudates, no abscesses noted, mucous membrane moist Neck: Supple, non-tender, no thyromegaly, no masses, no JVD, no bruits Breast:Deferred Chest:No tenderness, no crepitus, no paradoxical movement, no retractions Lungs:Clear, well-ventilated, symmetric, no rales, no wheezing, no rhonchi, no stridor, good breath sounds bilaterally Heart: Regular rate, regular rhythm, no murmur, no gallops Vascular: no peripheral edema, Abdomen: Soft, positive bowel sounds, nondistended, no guarding, nontender, no rebound, no masses no hepatomegaly, no splenomegaly, no Caruso's sign, no hernias. Rectal: Deferred Genital: Deferred Neurological: Normal speech, motor function intact, sensory function intact Musculoskeletal: Neck nontender, full range of motion, back nontender, full rang e of motion, Extremities: nontender, full range of motion Skin: Color pink, dry, no turgor, no rash, no lacerations, no abrasions, no contusions. Lymphatic: Deferred Results Laboratory and Microbiology Lab and Micro Result Laboratory Tests Test 04/29/25 19:42 04/29/25 21:14 04/29/25 22:43 Influenza Type A Antigen Negative For Type A Influenza Type B Antigen Positive For Type B SARS-CoV-2, RNA, NAAT NEGATIVE SARS CoV-2 Group A Streptococcus Rapid negative (NEGATIVE) White Blood Count 16.5 K/uL (4.8-10.8) H Red Blood Count 3.77 MIL/uL (4.00-5.50) L Hemoglobin 11.1 g/dL (12.0-16.0) L Hematocrit 33.9 % (36-48) L Mean Corpuscular Volume 89.9 fL (79-99) Mean Corpuscular Hemoglobin 29.4 pg (27.0-33.0) Mean Corpuscular Hemoglobin Concent 32.7 g/dL (32.0-36.0) Red Cell Distribution Width 15.7 % (11.0-15.5) H Platelet Count 140 K/uL (130-400) Mean Platelet Volume 10.5 fL (7.5-10.5) Immature Granulocyte % (Auto) 0.5 % (0-1) Neutrophils (%) (Auto) 76.2 % (40.0-77.0) Lymphocytes (%) (Auto) 18.0 % (21.0-51.0) L Monocytes (%) (Auto) 4.9 % (3.0-13.0) Eosinophils (%) (Auto) 0.2 % (0.0-8.0) Basophils (%) (Auto) 0.2 % (0.0-5.0) Neutrophils # (Auto) 12.6 K/uL (1.8-7.7) H Lymphocytes # (Auto) 3.0 K/uL (1.0-4.8) Monocytes # (Auto) 0.8 K/uL (0.1-1.0) Eosinophils # (Auto) 0.03 K/uL (0.00-0.70) Basophils # (Auto) 0.04 K/uL (0.00-0.20) Absolute Immature Granulocyte (auto 0.09 K/uL (0-1) Nucleated Red Blood Cells 0.0 % (0.0-0.19) Sodium Level 129 mmol/L (136-145) L Potassium Level 4.0 mmol/L (3.5-5.1) Chloride Level 97 mmol/L (101-111) L Carbon Dioxide Level 28 mmol/L (21-32) Blood Urea Nitrogen 19 mg/dL (7-18) H Creatinine 1.5 mg/dL (0.5-1.0) H Glomerular Filtration Rate Calc 41 mL/min (>90) Random Glucose 358 mg/dL (70-105) H Total Calcium 8.8 mg/dL (8.5-10.1) Troponin I High Sensitivity 6 ng/L (4-50) Whole Blood Glucose 270 MG/DL (70-110) H Labs Reviewed?: Yes MDM MDM: Patient is a 54-year-old female presenting to the emergency department for evaluation of increased generalized body weakness, headache, and chills. The patient has multiple nonspecific complaints but reports feeling dehydrated. She does report having a history of type 2 diabetes and is not compliant with the medication. On physical examination patient appears in no acute distress. Physical examination is reassuring. Vital signs are stable. CBC shows leukocytosis with a left shift. Chemistries reveal an elevated creatinine at 1.5. There is hyperglycemia with a blood sugar of over 300. The patient was given1 L of IV fluids and repeat sugar was in the to 270s. We had ordered 5 units of regular insulin but I canceled that after her blood sugar improved after1 L of IV fluids. The patient was given a2 L. On repeat examination the patient is lying comfortably in bed asleep. She states she is ready to be discharged and is hungry and would like to go home to eat. I did discussed lab findings with the patient. She is refusing Tamiflu for the diagnosis of influenza B. she would rather stay away from any medications at this time. Differential diagnosis: Viral illness, upper respiratory infection, dehydration, pneumonia There are no social concerns with this patient. Prescription drug management Prescriptions will include: None Medical management and examination interpretation discussions were had by me with other qualified healthcare professionals as indicated for the patient's care. ED Course Orders Procedure Category Date Status Time Influenza Type A & B, LAB 04/29/25 Complete Rapid 19:43 Covid Rna Naat LAB 04/29/25 Complete 19:43 Rapid (Group A Strep) LAB 04/29/25 Complete 19:43 Chest 1vw RAD 04/29/25 Resulted 19:47 Cbc With Differential LAB 04/29/25 Complete 20:59 Basic Metabolic Panel LAB 04/29/25 Complete 20:59 12 Lead Ekg Tracing- EKG 04/29/25 Complete Technical 20:59 Troponin I High LAB 04/29/25 Complete Sensitivity 20:59 0.9%Nacl 1000ml (Ns PHA 04/29/25 Complete 1000ml) 21:00 Insulin Regular, PHA 04/29/25 Complete Human 3ml (Humulin R 23:00 0.9%Nacl 1000ml (Ns PHA 04/29/25 Complete 1000ml) 23:00 Acetaminophen 325 Tab PHA 04/29/25 Complete (Tylenol 325mg Tab 23:00 Acetaminophen 325 Tab PHA 04/29/25 Complete (Tylenol 325mg Tab 22:49 Current Medications Medications (Trade) Dose Ordered Sig/Tj Route PRN Reason Start Time Stop Time Status Last Admin Dose Admin Acetaminophen (TYLenol 325MG TAB) 325 mg STK-MED ONCE .ROUTE 04/29/25 22:49 04/29/25 22:50 DC Acetaminophen (TYLenol 325MG TAB) 650 mg ONCE ONCE PO 04/29/25 23:00 04/29/25 23:01 DC 04/29/25 22:50 Insulin Human Regular (humuLIN R 100 UNIT/ML 3ML) 5 unit ONCE ONCE IV 04/29/25 23:00 04/29/25 23:01 DC Sodium Chloride 1,000 ml @ 0 mls/hr ONCE ONCE IV 04/29/25 21:00 04/29/25 21:04 DC 04/29/25 21:20 Sodium Chloride 1,000 ml @ 0 mls/hr ONCE ONCE IV 04/29/25 23:00 04/29/25 23:01 DC 04/29/25 22:50 Vital Signs Date Time Temp Pulse Resp B/P (MAP) Pulse Ox O2 Delivery O2 Flow Rate FiO2 04/29/25 20:05 98.8 102 22 115/71 99 Room Air* 0 21 04/29/25 19:39 98.2 109 20 111/66 100 Room Air DX & DISP Disposition: Discharge Departure Impression: Primary Impression: Influenza B Additional Impressions: Dehydration, Uncontrolled diabetes mellitus Condition: Stable Referrals: BREANNE KING DO (PCP) Time of Disposition: 23:57 I have reviewed the case, and I agree with, Diagnosis and Plan I performed the substantive portion of the visit. I have reviewed and personally made and approve the management plan that is documented in the note by myself or the LONNIE. I acknowledge for responsibility for the patient's management plan. MARY LOU ATKINSON Apr 29, 2025 23:58
[2025-04-30 00:01] VITALS: BP 111/70; PULSE 88; RESP 18; TEMP 98.8; O2SAT 99
== END 2025-04-30 00:13 | disposition home or self-care (01) ==
LOC: EDH 19:37
DX: J10.1 Influenza due to other identified influenza virus with other respiratory manifestations (principal); E86.0 Dehydration; E11.65 Type 2 diabetes mellitus with hyperglycemia; Z79.899 Other long term (current) drug therapy; Z90.49 Acquired absence of other specified parts of digestive tract; Z20.822 Contact with and (suspected) exposure to COVID-19
CPT/HCPCS: 99285; 96360; 71045; 87635; 96361; 84484; 80048; 85025; 87880; 87804 ×2; 82948; 36415; 93005; J7030 ×2

== ENCOUNTER 2025-08-09 12:01 | Emergency (ER) | payer OTHER ==
[~2025-08-09] VITALS: Ht 165.1 cm; Wt 63.5 kg
--- NOTE | 2025-08-09 12:07 | ERN ---
ED Note History of Present Illness Stated Complaint: WEAKNESS Chief Complaint: Weakness Time Seen by MD: 12:02 Dictation: PATIENT IS A 55-YEAR-OLD FEMALE COMING IN TODAY WITH COMPLAINTS OF GENERALIZED BODY WEAKNESS FOR THE LAST FOUR DAYS. SHE DENIES FEVER CHILLS NAUSEA VOMITING. NO CHEST PAIN NO BACK PAIN NO SOB NO CHANGE IN URINATION. SHE STATES SHE IS A DIABETIC BUT HAS NOT TAKEN HER DIABETIC MEDS IN QUITE A LONG TIME BECAUSE SHE FORGETS. NIH IS 0 Allergies: Coded Allergies: No Known Drug Allergies (Unverified Allergy, Unknown, 04/13/22) Home Meds Active Scripts Omeprazole (Omeprazole) 40 Mg Capsule.dr, 40 MG PO DAILY, #15 CAP Prov:WILLIAM GALLEGO [facility] 10/10/24 Sucralfate (Carafate) 1 Gram Tablet, 1 GM PO ACHS for 10 Days, #40 TAB Prov:WILLIAM GALLEGO [employer] 10/10/24 Amoxicillin/Potassium Clav (Amox Tr-K Clv 875-125 mg Tab) 875 Mg-125 Mg Tablet, 1 EACH PO BID for 7 Days, #14 TAB 0 Refills Prov:WILLIAM GALLEGO [facility] 10/10/24 Cyclobenzaprine HCl (Flexeril) 10 Mg Tab, 10 MG PO TID for muscle sstiffness, #14 TAB 0 Refills Prov:WILLIAM GALLEGO [employer] 08/20/23 Ibuprofen (Ibuprofen 800 mg Tab) 800 Mg Tab, 800 MG PO Q8H PRN for fever or pain, #30 TAB 0 Refills Prov:WILLIAM GALLEGO [facility] 08/20/23 Cefuroxime Axetil (Cefuroxime) 500 Mg Tablet, 500 MG PO BID for 7 Days, #14 TAB Prov:PRICE TORRES MD 12/25/22 Ascorbic Acid/Ascorbate Sodium (Vitamin C 500 mg Tablet Chew) 500 Mg Tab.chew, 500 MG PO DAILY for 30 Days, #30 TAB.CHEW Prov:MELODY YAÑEZ AGASAIP 04/20/22 Ferrous Sulfate (Ferrous Sulfate) 325 Mg Tablet, 325 MG PO DAILY for 30 Days, #30 TAB Prov:MELODY YAÑEZ AGACNP 04/20/22 Levofloxacin (Levaquin 750Mg Tabs) 750 Mg Tablet, 750 MG PO DAILYBKFST for 14 Days, #14 TAB Prov:MELODY YAÑEZ AGACNP 04/20/22 Past Medical History Past Medical History: Diabetes-Type II Surgical History: Cholecystectomy, Surgical History Other: OVARIAN CYST, KIDNEY STONES. Social History: Negative, Lives with family History: Not Applicable RN Note Reviewed/Agreed w/PFSH: Yes Review of System Dictation CONSTITUTIONAL: NEGATIVE EXCEPT FOR HPI GB W HEAD/FACE: NEGATIVE EXCEPT FOR HPI EENT: NEGATIVE EXCEPT FOR HPI RESPIRATORY: NEGATIVE EXCEPT FOR HPI GASTROINTESTINAL/ABDOMINAL: NEGATIVE EXCEPT FOR HPI GENITOURINARY: NEGATIVE EXCEPT FOR HPI MUSCULOSKELETAL: NEGATIVE EXCEPT FOR HPI INTEGUMENTARY: NEGATIVE EXCEPT FOR HPI NEUROLOGICAL/PSYCH: NEGATIVE EXCEPT FOR HPI HEMATOLOGIC/LYMPHATIC: NEGATIVE EXCEPT FOR HPI ALL SYSTEMS NEGATIVE, EXCEPT NOTED ABOVE. 13 POINT REVIEW OF SYSTEMS ASSESSED AND ALL NEGATIVE EXCEPT FOR ABOVE. Initial Vital Sign VS Vital Signs Date Time Temp Pulse Resp B/P (MAP) Pulse Ox O2 Delivery O2 Flow Rate FiO2 08/09/25 12:02 97.2 98 18 122/79 99 08/09/25 12:30 Room Air* 0 21 Physical Exam Dictation VITAL SIGNS REVIEWED GENERAL APPEARANCE: ALERT, ORIENTED X 3, NO ACUTE DISTRESS, WELL DEVELOPED, NOURISHED. ROLLOVER TIB PAIN HEAD AND FACE: NON-TRAUMATIC. EYES: PERRL, PINK CONJUNCTIVAS, EYELID NO TRAUMA, ANTERIOR CHAMBER WITH ARCUS SENILIS. EARS: PINNAS INTACT AND NO SIGNS OF TRAUMA OR ERYTHEMA EAR CANALS CLEAR AND NO DISCHARGE TM NO ERYTHEMA NOSE: NO DISCHARGE, NO BLEEDING. OROPHARYNX: MOUTH NORMAL, TONGUE PINK, PHARYNX CLEAR,NO ERYTHEMA, TONSILS NO EXUDATES, NO ABSCESSES NOTED, MUCOUS MEMBRANE MOIST NECK: SUPPLE, NON-TENDER, NO THYROMEGALY, NO MASSES, NO JVD, NO BRUITS BREAST:DEFERRED CHEST:NO TENDERNESS, NO CREPITUS, NO PARADOXICAL MOVEMENT, NO RETRACTIONS LUNGS:CLEAR, WELL-VENTILATED, SYMMETRIC, NO RALES, NO WHEEZING, NO RHONCHI, NO STRIDOR, GOOD BREATH SOUNDS BILATERALLY HEART: REGULAR RATE, REGULAR RHYTHM, NO MURMUR, NO GALLOPS VASCULAR: NO PERIPHERAL EDEMA, ABDOMEN: SOFT, POSITIVE BOWEL SOUNDS, NONDISTENDED, NO GUARDING, NONTENDER, NO REBOUND, NO MASSES NO HEPATOMEGALY, NO SPLENOMEGALY, NO PHILLIPS'S SIGN, NO HERNIAS. RECTAL: DEFERRED GENITAL: DEFERRED NEUROLOGICAL: NORMAL SPEECH, MOTOR FUNCTION INTACT, SENSORY FUNCTION INTACT MUSCULOSKELETAL: NECK NONTENDER, FULL RANGE OF MOTION, BACK NONTENDER, FULL RANGE OF MOTION, EXTREMITIES: NONTENDER, FULL RANGE OF MOTION SKIN: COLOR PINK, DRY, NO TURGOR, NO RASH, NO LACERATIONS, NO ABRASIONS, NO CONTUSIONS. LYMPHATIC: DEFERRED Results (Laboratory/Radiology) Laboratory/Radiology Laboratory Tests Test 08/09/25 12:09 08/09/25 13:23 08/09/25 14:37 08/09/25 15:19 White Blood Count 8.3 K/uL (4.8-10.8) Red Blood Count 3.88 MIL/uL (4.00-5.50) L Hemoglobin 11.4 g/dL (12.0-16.0) L Hematocrit 34.1 % (36-48) L Mean Corpuscular Volume 87.9 fL (79-99) Mean Corpuscular Hemoglobin 29.4 pg (27.0-33.0) Mean Corpuscular Hemoglobin Concent 33.4 g/dL (32.0-36.0) Red Cell Distribution Width 14.1 % (11.0-15.5) Platelet Count 165 K/uL (130-400) Mean Platelet Volume 10.4 fL (7.5-10.5) Immature Granulocyte % (Auto) 0.4 % (0-1) Neutrophils (%) (Auto) 75.5 % (40.0-77.0) Lymphocytes (%) (Auto) 17.8 % (21.0-51.0) L Monocytes (%) (Auto) 5.3 % (3.0-13.0) Eosinophils (%) (Auto) 0.8 % (0.0-8.0) Basophils (%) (Auto) 0.2 % (0.0-5.0) Neutrophils # (Auto) 6.3 K/uL (1.8-7.7) Lymphocytes # (Auto) 1.5 K/uL (1.0-4.8) Monocytes # (Auto) 0.4 K/uL (0.1-1.0) Eosinophils # (Auto) 0.07 K/uL (0.00-0.70) Basophils # (Auto) 0.02 K/uL (0.00-0.20) Absolute Immature Granulocyte (auto 0.03 K/uL (0-1) Nucleated Red Blood Cells 0.0 % (0.0-0.19) Sodium Level 124 mmol/L (136-145) L Potassium Level 4.7 mmol/L (3.5-5.1) Chloride Level 92 mmol/L (101-111) L Carbon Dioxide Level 26 mmol/L (21-32) Blood Urea Nitrogen 25 mg/dL (7-18) H Creatinine 1.9 mg/dL (0.5-1.0) H Glomerular Filtration Rate Calc 31 mL/min (>90) Random Glucose 685 mg/dL (70-105) *H Total Calcium 8.7 mg/dL (8.5-10.1) Whole Blood Glucose > 600 MG/DL (70-110) *H 511 MG/DL (70-110) *H 399 MG/DL (70-110) H Bedside Glucose Comment Notified Nurse Notified Nurse Labs Reviewed?: Yes ED Course ED Course Orders Procedure Category Date Status Time Cbc With Differential LAB 08/09/25 Complete 12:04 Urinalysis Profile LAB 08/09/25 Logged 12:04 Basic Metabolic Panel LAB 08/09/25 Complete 12:04 0.9%Nacl 1000ml (Ns PHA 08/09/25 Complete 1000ml) 13:00 Insulin Regular, PHA 08/09/25 Complete Human 3ml (Humulin R 13:00 Bedside Glucose CPOE 08/09/25 Transmitted Fingerstick 15:15 Insulin Regular, PHA 08/09/25 Complete Human 3ml (Humulin R 15:26 Bedside Glucose CPOE 08/09/25 Transmitted Fingerstick 16:05 Current Medications Medications (Trade) Dose Ordered Sig/Tj Route PRN Reason Start Time Stop Time Status Last Admin Dose Admin Insulin Human Regular (humuLIN R 100 UNIT/ML 3ML) 10 unit ONCE STAT IV 08/09/25 15:26 08/09/25 15:27 DC 08/09/25 15:45 Insulin Human Regular (humuLIN R 100 UNIT/ML 3ML) 15 unit ONCE ONCE IV 08/09/25 13:00 08/09/25 13:01 DC 08/09/25 13:25 Sodium Chloride 1,905 ml @ 635 mls/hr ONCE ONCE IV 08/09/25 13:00 08/09/25 15:59 DC 08/09/25 13:25 Vital Signs Date Time Temp Pulse Resp B/P (MAP) Pulse Ox O2 Delivery O2 Flow Rate FiO2 08/09/25 12:30 98.2 99 19 124/77 96 Room Air* 0 21 08/09/25 12:02 97.2 98 18 122/79 99 1528/REPEAT FINGERSTICK BLOOD SUGAR 399. WE WILL CONTINUE WITH IV BOLUS AND WE WILL GIVEN ADDITIONAL 10 UNITS HUMULIN REGULAR INSULIN IV [id number]/ 1630/REPEAT BLOOD SUGAR 359. PATIENT STATES SHE HAS GLIPIZIDE AND CHART ADVANCE AT HOME. HOWEVER SHE HAS NOT TAKEN IT SINCE OCTOBER BECAUSE SHE FORGETS. I TOLD HER TO SEE HER PRIMARY CARE DOCTOR ON MONDAY WE WOULD NOT CONSIDER THE BLOOD SUGAR ANY FURTHER HERE TODAY ALL QUESTIONS ANSWERED Medical Decision Making MDM MDM: DIFFERENTIAL DIAGNOSIS: ELECTROLYTE IMBALANCE/DEHYDRATION/NONCOMPLIANT/KETOACIDOSIS RATIONALE: TESTS CONSIDERED AND ORDERED SECONDARY TO SHARED DECISION MAKING INCLUDE: LABS PREVIOUS OUTSIDE RECORDS REVIEWED: OLD ER VISITS. RISK OF COMPLICATION AND/OR MORBIDITY OR MORTALITY OF PATIENT MANAGEMENT: NONE MEDICATIONS-PER MEDICATION RECONCILIATION NEED FOR HOSPITALIZATION: PATIENT DOES NOT MEET CRITERIA FOR HOSPITALIZATION. NONE NEED FOR EMERGENCY MAJOR/MINOR SURGERY: NO THERE ARE NO SOCIAL CONCERNS WITH THIS PATIENT. PRESCRIPTION DRUG MANAGEMENT NONE PRESCRIPTIONS WILL INCLUDE SYMPTOMATIC CARE PATIENT'S PRIOR EXTERNAL MEDICAL RECORDS FROM OTHER ER VISITS WERE REVIEWED BY ME INDICATED. PRIOR TESTING AND RESULTS FROM PREVIOUS VISITS WERE REVIEWED. PRIOR TESTS WERE TAKEN INTO ACCOUNT WITH MEDICAL DECISION MAKING AND RESOURCE UTILIZATION, INDEPENDENT HISTORIAN/HISTORIANS WERE USED TO OBTAIN COMPLETE MEDICAL HISTORY. I INDEPENDENTLY INTERPRETED THE TEST THAT WERE PERFORMED, RESULTS WERE REVIEWED BY ME AND CONSIDERED FINDINGS ON RADIOLOGY IF ORDERED. MEDICAL MANAGEMENT AND EXAMINATION INTERPRETATION DISCUSSIONS WERE HAD BY ME WITH OTHER QUALIFIED HEALTHCARE PROFESSIONALS INDICATED FOR THE PATIENT'S CARE. DX & DISP Disposition: Discharge Departure Impression: Primary Impression: Diabetes mellitus with hyperglycemia Additional Impressions: Hyponatremia, Noncompliance, Stage 3 chronic kidney disease, Chronic renal failure (CRF), stage 3b Condition: Stable Additional Instructions: FOLLOW-UP WITH PRIMARY CARE PROVIDER IN 1 TO 2 DAYS. TAKE MEDICATIONS DIRECTED HERE IN THE EMERGENCY ROOM. OKAY TO CONTINUE HOME MEDICATIONS UNLESS OTHERWISE DISCUSSED DURING YOUR VISIT IN THE EMERGENCY ROOM TODAY. RETURN TO YOUR NEAREST EMERGENCY ROOM IF SYMPTOMS WORSEN OR IF THERE IS NO IMPROVEMENT. CALL 911 IF YOU NEED IMMEDIATE ASSISTANCE. TAKE TYLENOL OR MOTRIN OVER-THE- COUNTER NEEDED AND IF NO CONTRAINDICATIONS ARE PRESENT. INCREASE ORAL HYDRATION. A WOUND CULTURE OR URINE CULTURE WAS ORDERED HERE IN THE EMERGENCY ROOM DEPARTMENT PLEASE FOLLOW-UP WITH PRIMARY CARE PROVIDER AND ADVISE THEM TO GET REPEAT PORTS FROM OUR FACILITY. IF YOU HAD ANY FARIDA WRAP/SPLINTS THAT WERE APPLIED HERE, PLEASE DO NOT REMOVE THEM UNTIL YOU SEE YOUR PRIMARY CARE OR SPECIALTY. TAKE YOUR DIABETIC MEDICATIONS AT HOME STARTING TODAY. INCREASE YOUR WATER INTAKE. SEE YOUR PRIMARY CARE DOCTOR ON MONDAY FOR FOLLOW UP AND MANAGEMENT OF YOUR DIABETES Referrals: BREANNE KING DO (PCP) Time of Disposition: 16:31 I have reviewed the case, and I agree with, Diagnosis and Plan WILLIAM GALLEGO Aug 09, 2025 12:07
[2025-08-09 12:19] LABS: IMMATURE GRANULOCYTE ABSOLUTE 0.03 K/uL (0-1); NUCLEATED RED BLOOD CELLS 0.0 % (0.0-0.19); PLATELET COUNT (AUTO) 165 K/uL (130-400); RED BLOOD CELL COUNT(AUTO) 3.88 MIL/uL (4.00-5.50); RED CELL DISTRIBUTION WIDTH 14.1 % (11.0-15.5); WHITE BLOOD COUNT (AUTO) 8.3 K/uL (4.8-10.8)
[2025-08-09 12:35] LABS: CREATININE 1.9 mg/dL (0.5-1.0); GLOMERULAR FILTR. RATE CALC 31.0 mL/min (>90); SODIUM SERUM 124.0 mmol/L (136-145); UREA NITROGEN, BLOOD 25.0 mg/dL (7-18)
[2025-08-09 12:41] LABS: GLUCOSE,RANDOM 685.0 mg/dL (70-105)
[2025-08-09] MEDS: 0.9%NACL 1000ML 1,905 ML IV ONE (13:25)
[2025-08-09 16:42] VITALS: BP 130/76; PULSE 91; RESP 18; TEMP 97.4; O2SAT 98
== END 2025-08-09 16:42 | disposition home or self-care (01) ==
LOC: EDH 12:01
DX: E11.65 Type 2 diabetes mellitus with hyperglycemia (principal); E87.1 Hypo-osmolality and hyponatremia; E11.22 Type 2 diabetes mellitus with diabetic chronic kidney disease; N18.32 Chronic kidney disease, stage 3b; R53.1 Weakness; Z79.899 Other long term (current) drug therapy; Z87.442 Personal history of urinary calculi; Z91.199 Patient's noncompliance with other medical treatment and regimen due to unspecified reason; Z90.49 Acquired absence of other specified parts of digestive tract; Z98.890 Other specified postprocedural states; Z87.42 Personal history of other diseases of the female genital tract
CPT/HCPCS: 99284; 96374; 96361; 80048; 85025; 82948 ×4; 36415; 96376; J1815 ×2; J7030